=== PATIENT | female | born 1990 | race Caucasian/White ===

== ENCOUNTER 2018-02-11 07:00 | Emergency (ER) | payer OTHER ==
--- NOTE | 2018-02-11 08:10 | C.PDOC ---
History Of Present Illness 27 yo female LNMP 11/16/2017, , come in for evaluation of increase lower abdominal cramping pain associated with vaginal bleeding for past 2 days. Pt reports, was seen by her OB 4 days ago and received US " I was told, lost my ". Pt admits, vaginal bleeding started 2 days ago, scheduled for D&C for tomorrow, " pain worsen , I called her and she told me to come to ED today" . Otherwise, pt denies fever, chills, headache, dizziness, CP, SOB, dyspnea, diaphoresis, palpitation, N/V, back pain. Ambulate to ED, not in any apparent distress. Time Seen by Provider: 02/11/18 07:07 Chief Complaint (Nursing): Female Genitourinary History Per: Patient Past Medical History Reviewed: Historical Data, Nursing Documentation, Vital Signs Vital Signs: Last Vital Signs Temp 98.4 F 02/11/18 12:13 Pulse 83 02/11/18 12:13 Resp 18 02/11/18 12:13 BP 110/64 02/11/18 12:13 Pulse Ox 99 02/11/18 12:13 - Medical History PMH: No Chronic Diseases Surgical History: Cholecystectomy Family History: States: Unknown Family Hx - Social History Hx Tobacco Use: No Hx Alcohol Use: No Hx Substance Use: No - Immunization History Hx Tetanus Toxoid Vaccination: No Hx Influenza Vaccination: No Hx Pneumococcal Vaccination: No Review Of Systems Except As Marked, All Systems Reviewed And Found Negative. Constitutional: Negative for: Fever, Chills Eyes: Negative for: Vision Change ENT: Negative for: Nose Discharge, Nose Congestion, Throat Pain, Throat Swelling Cardiovascular: Negative for: Chest Pain Respiratory: Negative for: Cough, Wheezing Gastrointestinal: Positive for: Abdominal Pain. Negative for: Nausea, Vomiting , Diarrhea, Hematochezia, Hematemesis Genitourinary: Positive for: Vaginal Bleeding Musculoskeletal: Negative for: Neck Pain, Back Pain Neurological: Negative for: Altered Mental Status, Headache, Dizziness Physical Exam - Physical Exam Appears: Well, Non-toxic, No Acute Distress Skin: Normal Color, Warm, Dry, No Rash Head: Normacephalic Eye(s): bilateral: PERRL Ear(s): Bilateral: Normal Nose: No Flaring, No Discharge Oral Mucosa: Moist, No Drooling Tongue: Normal Appearing Lips: Normal Appearing Throat: No Erythema, No Drooling Neck: Trachea Midline, Supple Cardiovascular: Rhythm Regular, No Murmur, No JVD Respiratory: No Decreased Breath Sounds, No Accessory Muscle Use, No Stridor, No Wheezing Gastrointestinal/Abdominal: Soft, No Tenderness, No Distention, No Guarding Back: No CVA Tenderness Extremity: Normal ROM, No Pedal Edema, Deformity, No Swelling Neurological/Psych: Oriented x3, Normal Speech ED Course And Treatment - Laboratory Results Result Diagrams: 02/11/18 08:04 O2 Sat by Pulse Oximetry: 100 Pulse Ox Interpretation: Normal - CT Scan/US Transvaginal OB US Other Rad Studies (CT/US): Radiology Report Reviewed CT/US Interpretation: Creator : Ángel Fierro MD. Dictator : Ángel Fierro MD. Grocery Supervisor : Inside Sales Specialist : Ángel Fierro MD. Approver2 : Report Date : 02/11/2018 11:37:45. My Comment : . Date of service: 2017. HISTORY: vaginal bleeding. LMP: October 2017. COMPARISON: No relevant prior imaging. TECHNIQUE: Grayscale, color Doppler and spectral evaluation the pelvis performed transabdominally and transvaginally. FINDINGS: UTERUS: Measures 13.5 x 6.5 x 6.4 cm. Anteverted. Normal in size and appearance. No fibroid or other mass lesion seen. ENDOMETRIUM: Measures 18 mm in diameter. Unremarkable. CERVIX: No cervical abnormality identified. RIGHT OVARY: Measures 3.0 x 2.3 x 3.1 cm. No solid mass. Normal flow. LEFT OVARY: Measures 2.6 x 1.8 x 2.3 cm. No solid mass. Normal flow. FREE FLUID: No significant free fluid noted. OTHER FINDINGS: None. IMPRESSION: No intrauterine gestation identified. Thickened endometrium with normal vascularity. Possible echogenic material within the cervical canal may represent clots. Findings may represent early normal/ abnormal with ectopic or spontaneous not excluded. Close clinical follow-up with serial pelvic sonography and serum beta HCG levels is recommended.. Progress Note: Pt was OBS in ED for 5 hours due to delay in imaging and radiology reading. Pt was re-eval every hour and remained stable, appears in pain, takes Tylenol for pain ( brought with her), refused stronger pain medication. On re-evaluation, pt is afebrile, hemodynamicaly stable. Non- toxic. Ambulatory in Ed with stable gait. ENT: no acute finidngs. neck: SUpple. Lungs: CTA B/L, BS equal B/L. Abd: benign, (-) guaridng, (-) rebound. back: (-) CVA tenderness. Blood work review, mild leukocytosis with left shift. Beta quat (+)1500. Blood type: O positive. US results review: No intrauterine gestation identified. Pt has clinical finidngs c/w vaginal bleeding, (+) , no IUG noted in uterus, likely c/w spontaneous miscarriage. results review and discussed with pt. Pt advised to f/u with [facility] in 1-2 days for re-evaluation, repeat beta quant and US as need. return to Ed if any worsening or new changes. Disposition Counseled Patient/Family Regarding: Diagnosis, Need For Followup - Disposition [facility]errals: [facility] [Outside] Disposition: HOME/ ROUTINE Disposition Time: 11:44 Condition: STABLE Additional Instructions: Encourage fluids Follow up with OB in 1 day for re-evaluation, repeat beta quant and US as need return to ED if any worsening or new changes. Instructions: Miscarriage Forms: [employer] (Citizen [place]) Print Language: SERBIAN - Clinical Impression Clinical Impression: Miscarriage
[2018-02-11 08:18] LABS: BASO # 0.1 K/uL (0.0-0.2); BASO % 0.8 % (0.0-2.0); EOS # 0.2 K/uL (0.0-0.7); EOS % 1.2 % (0.0-4.0); HEMOGLOBIN 11.8 g/dL (11.0-16.0); LYMPH # 2.5 K/uL (1.0-4.3); LYMPH % 18.2 % (20.0-40.0); MEAN CORPUSCULAR HEMOGLOBIN 25.1 pg (27.0-31.0); MEAN CORPUSCULAR HGB CONC 32.4 g/dL (33.0-37.0); MEAN PLATELET VOLUME 9.5 fL (7.2-11.7); MONO # 0.8 K/uL (0.0-0.8); MONO % 5.5 % (0.0-10.0); NEUT # 10.3 K/uL (1.8-7.0); NEUT % 74.3 % (50.0-75.0); RBC 4.69 Mil/uL (3.80-5.20); RED CELL DISTRIBUTION WIDTH 18.2 % (11.5-14.5); WHITE BLOOD COUNT 13.9 K/uL (4.8-10.8)
[2018-02-11 08:21] LABS: MEAN CELL VOLUME 77.4 fL (81.0-99.0)
[2018-02-11 10:52] LABS: SQUAMOUS EPITHIAL 1 /hpf (0-5); URINE BACTERIA RARE (<OCC); URINE BILIRUBIN NEGATIVE (NEGATIVE); URINE BLOOD 3+ (NEGATIVE); URINE CLARITY Clear (Clear); URINE COLOR Red (YELLOW); URINE GLUCOSE (UA) 1+ mg/dL (Normal); URINE LEUKOCYTE ESTERASE 1+ Leu/uL (Negative); URINE PROTEIN 2+ mg/dL (NEGATIVE); URINE UROBILINOGEN NORMAL mg/dL (0.2-1.0)
[2018-02-11 10:53] LABS: HCG,QUALITATIVE URINE POSITIVE (NEGATIVE)
--- NOTE | 2018-02-11 11:39 | US ---
Date of service: 02/11/2018 HISTORY: vaginal bleeding LMP: October 2017 COMPARISON: No relevant prior imaging. TECHNIQUE: Grayscale, color Doppler and spectral evaluation the pelvis performed transabdominally and transvaginally FINDINGS: UTERUS: Measures 13.5 x 6.5 x 6.4 cm. Anteverted. Normal in size and appearance. No fibroid or other mass lesion seen. ENDOMETRIUM: Measures 18 mm in diameter. Unremarkable. CERVIX: No cervical abnormality identified. RIGHT OVARY: Measures 3.0 x 2.3 x 3.1 cm. No solid mass. Normal flow. LEFT OVARY: Measures 2.6 x 1.8 x 2.3 cm. No solid mass. Normal flow. FREE FLUID: No significant free fluid noted. OTHER FINDINGS: None. IMPRESSION: No intrauterine gestation identified. Thickened endometrium with normal vascularity. Possible echogenic material within the cervical canal may represent clots. Findings may represent early normal/ abnormal with ectopic or spontaneous not excluded. Close clinical follow-up with serial pelvic sonography and serum beta HCG levels is recommended.
[2018-02-11 12:14] VITALS: BP 110/64; PULSE 83; RESP 18; TEMP 98.4
[2018-02-11 18:43] VITALS: O2SAT 100
== END 2018-02-11 12:37 | disposition home or self-care (01) ==
LOC: C.ER 07:00
DX: O03.9 Complete or unspecified spontaneous abortion without complication (principal)

== ENCOUNTER 2018-02-12 08:21 | Emergency (ER) | payer OTHER ==
[2018-02-12 08:31] VITALS: TEMP 98.7
--- NOTE | 2018-02-12 09:21 | C.PDOC ---
History Of Present Illness 27 yo female come in for re-evaluation of increase lower abdominal pain since yesterday. Pt admits, was seen here yesterday in ED when was diagnosed with spontaneous miscarriage. Pt sts, pain worse since yesterday, vaginal bleeding was same " or slightly improved". Pt sts, developed 3 days ago diffuse lower abdominal cramping pain associated with vaginal bleeding 3 days ago. Otherwise, pt denies fever, chills, headache, dizziness, N/V, back pain. FYI: records from yesterday review, beta quant US RESULTS IMPRESSION: No intrauterine gestation identified. Thickened endometrium with normal vascularity. Possible echogenic material within the cervical canal may represent clots. Findings may represent early normal/ abnormal with ectopic or spontaneous not excluded. Close clinical follow- up with serial pelvic sonography and serum beta HCG levels is recommended. Time Seen by Provider: 02/12/18 08:36 Chief Complaint (Nursing): Female Genitourinary History Per: Patient Past Medical History Reviewed: Historical Data, Nursing Documentation, Vital Signs Vital Signs: Last Vital Signs Temp 98.7 F 02/12/18 08:29 Pulse 80 02/12/18 12:23 Resp 19 02/12/18 12:23 BP 116/75 02/12/18 12:23 Pulse Ox 100 02/12/18 12:51 - Medical History PMH: No Chronic Diseases Surgical History: Cholecystectomy Family History: States: Unknown Family Hx - Social History Hx Tobacco Use: No Hx Alcohol Use: No Hx Substance Use: No - Immunization History Hx Tetanus Toxoid Vaccination: No Hx Influenza Vaccination: No Hx Pneumococcal Vaccination: No Review Of Systems Except As Marked, All Systems Reviewed And Found Negative. Constitutional: Negative for: Fever, Chills ENT: Negative for: Throat Pain Cardiovascular: Negative for: Chest Pain Respiratory: Negative for: Cough, Shortness of Breath Gastrointestinal: Negative for: Nausea, Vomiting Genitourinary: Positive for: Vaginal Bleeding. Negative for: Frequency Musculoskeletal: Negative for: Back Pain Neurological: Negative for: Altered Mental Status, Headache, Dizziness Physical Exam - Physical Exam Appears: Well, No Acute Distress Skin: Normal Color, Warm, Dry Eye(s): bilateral: PERRL Nose: No Flaring Oral Mucosa: Moist Throat: No Erythema, No Drooling Neck: Trachea Midline, Supple Cardiovascular: Rhythm Regular Respiratory: No Decreased Breath Sounds, No Accessory Muscle Use, No Stridor, No Wheezing Gastrointestinal/Abdominal: Normal Exam Back: No CVA Tenderness Pelvic: Vaginal Bleeding (large clots in cervical canal noted and removed), No Cervical Motion Tenderness Extremity: Normal ROM, No Deformity, No Swelling ED Course And Treatment O2 Sat by Pulse Oximetry: 100 Pulse Ox Interpretation: Normal - CT Scan/US OB transvaginal US Other Rad Studies (CT/US): Radiology Report Reviewed CT/US Interpretation: Creator : Ángel Fierro MD. Dictator : Ángel Fierro MD. Soil Analyst : Chaperone : Ángel Fierro MD. Approver2 : Report Date : 02/12/2018 12:09:09. My Comment : . Date of service: 2017. HISTORY: miscarrige, increase abd. pain r/o retaine product. Serum beta HCG 509.4. COMPARISON: Pelvic ultrasound dated 02/11/2018. TECHNIQUE: Grayscale, color Doppler and spectral evaluation the pelvis performed transvaginally. FINDINGS: UTERUS: Measures 11.0 x 6.6 x 7.7 cm. Anteverted. Normal in size and appearance. No fibroid or other mass lesion seen. ENDOMETRIUM: Thickened heterogeneous endometrium, measuring 25 mm in diameter with slightly increased vascularity. CERVIX: No cervical abnormality identified. Previously seen echogenic material within the cervical canal longer present. RIGHT OVARY: Measures 3.9 x 2.0 x 2.8 cm. No solid mass. Normal flow. LEFT OVARY: Measures 2.9 x 1.7 x 3.9 cm. No solid mass. Normal flow. FREE FLUID: No significant free fluid noted. OTHER FINDINGS: None. IMPRESSION: Thickened, heterogeneous slightly hypervascular endometrium for which retained products of conception cannot be excluded. Progress Note: OB television journalist called for consult, results review. recommend Methergine 0.2mg tid#3 days, analgesics, disachrge with outpt f/u now. AFter discussion with , pt reports, was able to get in touch with her OB , anali mendoza in pt in ED. Pt was seen in ED by and ordered Methergine 0.2 mg IM#1 with discharge, outpt f/u tomorrow. beta quant today 509 compare to yesterdat 1500. US results review and no acute pathology, no retained product of conception noted. Pt has clinical finidngs c/ w spontaneos miscarriage. Pt advised per instruction. ref. to f/u with OB in 2-3 days for re-evaluation. return if any worsening or new changes. Disposition Counseled Patient/Family Regarding: Studies Performed, Diagnosis, Need For Followup, Rx Given - Disposition [facility]errals: [facility] [Outside] Disposition: HOME/ ROUTINE Disposition Time: 10:58 Condition: STABLE Additional Instructions: Take medication as prescribed Encourage fluids Follow up with [facility] in 1-2 days for re-evaluation. return to ED if any worsening or new changes. Prescriptions: traMADol [Ultram] 50 mg PO TID #7 tab Instructions: Miscarriage (DC) Forms: [employer] [place] ([place]) - Clinical Impression Clinical Impression: Complete miscarriage
--- NOTE | 2018-02-12 12:10 | US ---
Date of service: 02/12/2018 HISTORY: miscarrige, increase abd. pain r/o retaine product. Serum beta HCG 509.4 COMPARISON: Pelvic ultrasound dated 02/11/2018. TECHNIQUE: Grayscale, color Doppler and spectral evaluation the pelvis performed transvaginally FINDINGS: UTERUS: Measures 11.0 x 6.6 x 7.7 cm. Anteverted. Normal in size and appearance. No fibroid or other mass lesion seen. ENDOMETRIUM: Thickened heterogeneous endometrium, measuring 25 mm in diameter with slightly increased vascularity. CERVIX: No cervical abnormality identified. Previously seen echogenic material within the cervical canal longer present. RIGHT OVARY: Measures 3.9 x 2.0 x 2.8 cm. No solid mass. Normal flow. LEFT OVARY: Measures 2.9 x 1.7 x 3.9 cm. No solid mass. Normal flow. FREE FLUID: No significant free fluid noted. OTHER FINDINGS: None. IMPRESSION: Thickened, heterogeneous slightly hypervascular endometrium for which retained products of conception cannot be excluded.
[2018-02-12 12:23] VITALS: BP 116/75; PULSE 80; RESP 19
[2018-02-12 12:30] VITALS: O2SAT 100
== END 2018-02-12 15:11 | disposition home or self-care (01) ==
LOC: C.ER 08:21
DX: O03.9 Complete or unspecified spontaneous abortion without complication (principal)
CPT/HCPCS: 76830; 84702; 96372; 99284; J2210